=== PATIENT | male | born 1950 | race Caucasian/White ===

== ENCOUNTER 2019-06-28 08:20 | Outpatient (CLI) | payer MEDICARE, SELFPAY ==
[2019-06-28 08:35] LABS: Hematocrit 42.3 % (37.0-46.0); Hemoglobin 14.6 g/dL (12.4-15.3); Mean Corpuscular HGB Conc 34.5 g/dL (32.0-36.0); Mean Corpuscular Hemoglobin 34.9 pg (27.0-31.0); Mean Corpuscular Volume 101.2 fL (78.0-102.0); Mean Platelet Volume 9.3 fl (8.7-11.0); Platelet Count Result 324 K/mm3 (150-420); Red Blood Count 4.18 M/mm3 (4.70-6.10); White Blood Count 6.8 K/mm3 (4.8-10.8)
[2019-06-28 09:56] LABS: Alanine Aminotransferase 23 U/L (16-63); Albumin Level 3.5 g/dL (3.4-5.0); Alkaline Phosphatase 96 U/L (46-116); Anion Gap 12.9 mmol/L (7-16); Aspartate Amino Transferase 25 U/L (15-37); Bilirubin,Total 0.7 mg/dL (0.00-1.00); Blood Urea Nitrogen 10 mg/dL (7-18); Calcium 8.8 mg/dL (8.5-10.1); Carbon Dioxide 31 mmol/L (21-32); Chloride 103 mmol/L (98-108); Cholesterol 216 mg/dL (0-200); Estimated Glomerular Filt Rate > 60; Glucose 97 mg/dL (70-99); HDL Direct 41 mg/dL (40-60); LDL Cholesterol Calculated 148 mg/dL (<130); Osmolality Calculated 293 mOsm/kg (285-295); Potassium 4.9 mmol/L (3.5-5.1); Sodium 142 mmol/L (136-145); Triglycerides 133 mg/dL (0-150)
== END 2019-06-28 08:21 | disposition home or self-care (01) ==
LOC: CHSLAB 08:26
PROVIDERS: PCP Family Medicine; Visit Provider Family Medicine
DX: E78.5 Hyperlipidemia, unspecified (principal); I10 Essential (primary) hypertension
CPT/HCPCS: 36415; 80053; 80061; 85027

== ENCOUNTER 2020-07-26 09:12 | Outpatient (CLI) | payer MEDICARE, SELFPAY ==
[2020-07-26 09:26] LABS: Hematocrit 41.9 % (37.0-46.0); Hemoglobin 14.6 g/dL (12.4-15.3); Mean Corpuscular HGB Conc 34.8 g/dL (32.0-36.0); Mean Corpuscular Hemoglobin 37.2 pg (27.0-31.0); Mean Corpuscular Volume 106.6 fL (78.0-102.0); Mean Platelet Volume 9.6 fl (8.7-11.0); Platelet Count Result 326 K/mm3 (150-420); Red Blood Count 3.93 M/mm3 (4.70-6.10); White Blood Count 7.4 K/mm3 (4.8-10.8)
[2020-07-26 10:46] LABS: Alanine Aminotransferase 26 U/L (16-63); Albumin Level 3.7 g/dL (3.4-5.0); Alkaline Phosphatase 98 U/L (46-116); Anion Gap 9 mmol/L (8-16); Aspartate Amino Transferase 21 U/L (15-37); Bilirubin,Total 0.8 mg/dL (0.00-1.00); Blood Urea Nitrogen 13 mg/dL (7-18); Calcium 8.9 mg/dL (8.5-10.1); Carbon Dioxide 27 mmol/L (21-32); Chloride 104 mmol/L (98-108); Cholesterol 173 mg/dL (0-200); Estimated Glomerular Filt Rate > 60; Glucose 97 mg/dL (70-99); HDL Direct 39 mg/dL (40-60); LDL Cholesterol Calculated 103 mg/dL (<130); Osmolality Calculated 290 mOsm/kg (285-295); Potassium 4.3 mmol/L (3.5-5.1); Sodium 140 mmol/L (136-145); Total Protein 7.1 g/dL (6.4-8.2); Triglycerides 154 mg/dL (0-150)
[2020-07-27 14:41] LABS: Folic Acid > 20.0 ng/mL (8.6->20); Vitamin B12 < 80 pg/mL (193-986)
== END 2020-07-26 09:13 | disposition home or self-care (01) ==
LOC: CHSLAB 09:16
PROVIDERS: PCP Family Medicine; Visit Provider Family Medicine
DX: I10 Essential (primary) hypertension (principal); E78.5 Hyperlipidemia, unspecified; E53.8 Deficiency of other specified B group vitamins
CPT/HCPCS: 36415; 80053; 80061; 82607; 82746; 85027

== ENCOUNTER 2020-07-31 08:45 | Outpatient (CLI) | payer MEDICARE, BC, SELFPAY ==
--- NOTE | ~2020-07-31 | US_ITS ---
EXAMINATION: US soft tissue groin LT DATE: 07/31/2020 09:34 INDICATION: Generalized enlarged lymph nodes with soft tissue mass at the left groin TECHNIQUE: Multiple grayscale and Doppler ultrasound images of the region of concern at the left groi n were obtained. COMPARISON: None FINDINGS/IMPRESSION: The palpable abnormality of concern corresponds to a 4.6 x 1.3 x 3.5 cm subcutaneous mass with lobula r margins and which is isoechoic and with similar echotexture and internal septated architecture as t he surrounding subcutaneous fat which is most suggestive of an statistically most likely to represent a lipoma. Could consider either CT or MRI for definitive determination. No other masses or pathologi tapan enlarged lymphadenopathy. Reviewed, dictated and finalized at location A.
== END 2020-07-31 08:46 | disposition home or self-care (01) ==
LOC: CHSIMG 08:46
PROVIDERS: PCP Family Medicine; Visit Provider Family Medicine
DX: R59.1 Generalized enlarged lymph nodes (principal)
CPT/HCPCS: 76882

== ENCOUNTER 2020-08-03 09:14 | Outpatient (CLI) | payer MEDICARE, BC, SELFPAY ==
--- NOTE | ~2020-08-03 | CT_ITS ---
EXAMINATION: CT LE LT w con DATE: 08/03/2020 09:54 INDICATION: Lump at the inner upper left thigh. TECHNIQUE: High resolution computed tomography (CT) of the left mid to upper thigh was performed with out intravenous contrast. Additional sagittal and coronal reconstructions were performed. Automated e xposure control and iterative reconstruction technique were employed. The dose-length product was 727 .03 mGy-cm. COMPARISON: Ultrasound dated 07/31/2020 FINDINGS: There is a subtle bulge to the skin surface with focal thickening of the subcutaneous fat at the ante romedial aspect of the left thigh at the level of the testis which would be consistent with prior joselyn picion of lipoma. The precise margins of the mass are unable to be identified. No other soft tissue m asses or abnormal fluid collections identified. Underlying musculature is unremarkable. Extensive sca ttered atherosclerotic calcific lesions without hemodynamically significant stenosis in the visualize d vessels of the pelvis and proximal to mid left thigh. Mild left hip osteoarthritis with posterior p redominant mild nonuniform joint space narrowing. No left hip joint effusion. Bilateral approximately 1 cm fluid attenuation likely epididymal cysts at the testes. Bladder and prostate are unremarkable. No pathologically enlarged left pelvic or inguinal lymphadenopathy. IMPRESSION: 1. Homogeneous fat attenuation at the region of focal thickening of the subcutaneous fat at the regio n of concern which would be consistent with either locally increased normal subcutaneous fat or a mor e discrete subcutaneous lipoma, the latter favored based upon the appearance on prior ultrasound.. Reviewed, dictated and finalized at location A. IMPRESSION: 1. Homogeneous fat attenuation at the region of focal thickening of the subcuta neous fat at the region of concern which would be consistent with either locall y increased normal subcutaneous fat or a more discrete subcutaneous lipoma, the latter favored based upon the appearance on prior ultrasound..
== END 2020-08-03 09:15 | disposition home or self-care (01) ==
LOC: CHSIMG 09:15
PROVIDERS: PCP Family Medicine; Visit Provider Family Medicine
DX: R19.09 Other intra-abdominal and pelvic swelling, mass and lump (principal)
CPT/HCPCS: 73701; Q9967